=== PATIENT | male | born 1975 | race Two or more races ===

== ENCOUNTER 2021-04-06 17:31 | Inpatient (IN) | payer MEDICAID ==
[~2021-04-06] VITALS: Ht 157.5 cm; Wt 94.0 kg
[2021-04-06 18:29] LABS: GLUCOSE,POINT OF CARE 116 MG/DL (70-110)
[2021-04-06 19:34] LABS: BASOPHILS % (AUTO) 1.8 % (0.0-2.0); EOSINOPHILS % (AUTO) 4.3 % (1.0-6.0); HEMATOCRIT 43.1 % (41-53); HEMOGLOBIN 14.5 g/dL (13.5-17.5); LYMPHOCYTES # (AUTO) 2.1 K/uL (1.0-4.8); LYMPHOCYTES % (AUTO) 31.8 % (22.0-44.0); MEAN CORPUSCULAR HEMOGLOBIN 33.6 pg (26.0-34.0); MEAN CORPUSCULAR HGB CONC 33.6 G/dL (31.0-37.0); MEAN CORPUSCULAR VOLUME 100 fL (80-100); MONOCYTES # (AUTO) 0.7 K/uL (0.1-1.0); MONOCYTES % (AUTO) 10.8 % (2.0-9.0); NEUTROPHILS # (AUTO) 3.4 K/uL (1.8-7.7); NEUTROPHILS % (AUTO) 51.3 % (40.0-70.0); RED BLOOD CELL COUNT(AUTO) 4.31 MIL/uL (4.50-5.90)
[2021-04-06 19:51] LABS: ANION GAP 10 mmol/L (8-16); CALCIUM, TOTAL 7.3 mg/dL (8.8-10.5); CARBON DIOXIDE 25 mmol/L (22-29); CHLORIDE 103 mmol/L (98-107); CREATININE 0.66 mg/dL (0.60-1.30); GLOMERULAR FILTR. RATE CALC > 60 mL/min (>60); GLUCOSE,RANDOM 132 mg/dL (70-110); POTASSIUM 3.4 mmol/L (3.5-5.1); SODIUM SERUM 138 mmol/L (136-145); UREA NITROGEN, BLOOD 6 mg/dL (7-18)
[2021-04-06 19:58] LABS: ALANINE AMINOTRANSFERASE 71 U/L (12-78); ALBUMIN 2.4 g/dL (3.4-5.0); ALKALINE PHOSPHATASE 215 U/L (46-116); ASPARTATE AMINOTRANSFERASE 160 U/L (15-37); BILIRUBIN,TOTAL 3.4 mg/dL (0.1-1.0); LIPASE 226 U/L (73-393); TOTAL PROTEIN, SERUM 7.6 g/dL (6.4-8.2)
[2021-04-06 19:59] LABS: COVID AG,FIA SOURCE NASOPHARYNGEAL
[2021-04-06 20:11] LABS: APPEARANCE,URINE CLEAR (CLEAR); GLUCOSE, URINE (UA) NEGATIVE (NEGATIVE); KETONES,URINE TRACE mg/dL (NEGATIVE); LEUKOCYTE ESTERASE ,URINE TRACE (NEGATIVE); NITRATE,URINE NEGATIVE (NEGATIVE); OCCULT BLOOD,URINE MODERATE (NEGATIVE); PROTEIN,URINE POS 1+ (NEGATIVE)
[2021-04-06 20:12] LABS: BILIRUBIN,URINE PRELIM. POSITIVE (NEGATIVE)
[2021-04-06 20:19] LABS: AMPHET/METH SCREEN,URINE NEGATIVE (NEGATIVE); BARBITURATE SCREEN, URINE NEGATIVE (NEGATIVE); BENZODIAZEPINES SCREEN,URINE POSITIVE (NEGATIVE); CANNABINOID SCREEN,URINE NEGATIVE (NEGATIVE); COCAINE SCREEN,URINE NEGATIVE (NEGATIVE); METHADONE SCREEN, URINE NEGATIVE (NEGATIVE); OPIATE SCREEN,URINE NEGATIVE (NEGATIVE); PHENCYCLIDINE SCREEN,URINE NEGATIVE (NEGATIVE)
[2021-04-06 20:20] LABS: B-TYPE NATRIURETIC PEPTIDE 21 pg/mL (0-100)
[2021-04-06 20:23] LABS: RBC,URINE 0-2 /HPF (0-2); WBC,URINE 0-2 /HPF (0-5)
[2021-04-06 20:24] LABS: BACTERIA,URINE None Seen /HPF (None Seen)
[2021-04-06 20:25] LABS: SQUAMOUS EPITHELIAL CELL,UR Rare /LPF (None Seen)
[2021-04-06 20:29] LABS: PLATELET COUNT (AUTO) 76 K/uL (150-450); PLATELET MORPHOLOGY COMMENT LARGE PLTS PRESENT
[2021-04-06] MEDS ORDERED: POTASSIUM CHL 10 MEQ/WATER 50 ML IV PRN (22:30)
[2021-04-06] MEDS ORDERED: MAGNESIUM SULFATE 4 GM/WATER 100 ML IV PRN (22:30)
[2021-04-06] MEDS ORDERED: POTASSIUM CHLORIDE 20 MEQ ER TABLET PO PRN (22:30)
[2021-04-06] MEDS ORDERED: MAGNESIUM SULFATE 2 GM/WATER 50 ML IV PRN (22:30)
[2021-04-06] MEDS ORDERED: ONDANSETRON HCL 4 MG/2 ML VIAL IVP PRN (22:30)
[2021-04-06] MEDS ORDERED: MAGNESIUM OXIDE 400 MG TABLET PO PRN (22:30)
[2021-04-06] MEDS ORDERED: LORazepam 2 MG TABLET PO PRN (22:30)
[2021-04-06 22:39] LABS: INR 1.3 (0.9-1.1); PROTHROMBIN TIME 13.1 SEC (9.4-11.6)
[2021-04-06] MEDS: CefTRIAXone 1 GM/DEXTROSE 50 ML IV SCH (23:41)
[2021-04-07] VITALS (8 sets, daily range): BP systolic 130–162; BP diastolic 73–97
[2021-04-07] MEDS: MAGNESIUM SULFATE 2 GM, MVI, ADULT NO.1 WITH VIT K 10 ML, THIAMINE 100 MG, FOLIC ACID 1... IV SCH ×10 (01:33→20:42)
[2021-04-07] MEDS: HEPARIN SODIUM,PORCINE 5,000 UNITS/ML VIAL SQ SCH ×4 (01:34→23:17)
[2021-04-07] MEDS: AZITHROMYCIN 500 MG/NS 250 ML IV SCH (02:53)
[2021-04-07] MEDS ORDERED: LORazepam 2 MG TABLET PO PRN (07:00)
[2021-04-07 08:25] LABS: BASOPHILS % (AUTO) 1.3 % (0.0-2.0); EOSINOPHILS % (AUTO) 6.7 % (1.0-6.0); HEMATOCRIT 41.5 % (41-53); LYMPHOCYTES # (AUTO) 1.4 K/uL (1.0-4.8); LYMPHOCYTES % (AUTO) 30.2 % (22.0-44.0); MEAN CORPUSCULAR HEMOGLOBIN 33.5 pg (26.0-34.0); MEAN CORPUSCULAR HGB CONC 33.8 G/dL (31.0-37.0); MEAN CORPUSCULAR VOLUME 99 fL (80-100); MONOCYTES # (AUTO) 0.6 K/uL (0.1-1.0); MONOCYTES % (AUTO) 12.9 % (2.0-9.0); NEUTROPHILS # (AUTO) 2.2 K/uL (1.8-7.7); NEUTROPHILS % (AUTO) 48.9 % (40.0-70.0); PLATELET COUNT (AUTO) 60 K/uL (150-450); RED BLOOD CELL COUNT(AUTO) 4.17 MIL/uL (4.50-5.90); RED CELL DISTRIBUTION WIDTH 15.7 % (11.5-14.5)
[2021-04-07 08:44] LABS: ANION GAP 7 mmol/L (8-16); CALCIUM, TOTAL 7.4 mg/dL (8.8-10.5); CARBON DIOXIDE 28 mmol/L (22-29); CHLORIDE 107 mmol/L (98-107); CREATININE 0.55 mg/dL (0.60-1.30); GLOMERULAR FILTR. RATE CALC > 60 mL/min (>60); GLUCOSE,RANDOM 75 mg/dL (70-110); POTASSIUM 3.6 mmol/L (3.5-5.1); SODIUM SERUM 142 mmol/L (136-145); UREA NITROGEN, BLOOD 6 mg/dL (7-18)
[2021-04-07] MEDS ORDERED: LORazepam 2 MG TABLET PO SCH (09:00)
[2021-04-07] MEDS ORDERED: ASPI-1444 PO (20:36)
[2021-04-07] MEDS: LORazepam 2 MG/ML VIAL IVP PRN (20:42)
[2021-04-07] MEDS: CefTRIAXone 1 GM/DEXTROSE 50 ML IV SCH (23:17)
[2021-04-08] VITALS (7 sets, daily range): BP systolic 139–159; BP diastolic 88–101
[2021-04-08] MEDS: AmLODIPine BESYLATE 10 MG TABLET PO SCH ×2 (00:22→08:46)
[2021-04-08] MEDS: AZITHROMYCIN 500 MG/NS 250 ML IV SCH (00:22)
[2021-04-08] MEDS: LORazepam 2 MG/ML VIAL IVP PRN ×3 (03:05→20:19)
[2021-04-08] MEDS: HEPARIN SODIUM,PORCINE 5,000 UNITS/ML VIAL SQ SCH ×3 (08:46→23:16)
[2021-04-08] MEDS: SPIRONOLACTONE 25 MG TABLET PO SCH (12:15)
[2021-04-08] MEDS: FUROSEMIDE 20 MG TABLET PO SCH (12:15)
[2021-04-08] MEDS: MAGNESIUM SULFATE 2 GM, MVI, ADULT NO.1 WITH VIT K 10 ML, THIAMINE 100 MG, FOLIC ACID 1... IV SCH ×5 (20:19)
[2021-04-08] MEDS: CefTRIAXone 1 GM/DEXTROSE 50 ML IV SCH (23:16)
[2021-04-09] MEDS: METOPROLOL TARTRATE 25 MG TABLET PO SCH ×2 (01:07→08:10)
[2021-04-09] MEDS: AZITHROMYCIN 500 MG/NS 250 ML IV SCH (01:07)
[2021-04-09 05:25] VITALS: BP 144/91
[2021-04-09] MEDS ORDERED: LORazepam 1 MG TABLET PO PRN (07:00)
[2021-04-09 07:48] VITALS: BP 144/80
[2021-04-09] MEDS: HEPARIN SODIUM,PORCINE 5,000 UNITS/ML VIAL SQ SCH (08:09)
[2021-04-09] MEDS: FUROSEMIDE 20 MG TABLET PO SCH (08:10)
[2021-04-09] MEDS: AmLODIPine BESYLATE 10 MG TABLET PO SCH (08:10)
[2021-04-09] MEDS: SPIRONOLACTONE 25 MG TABLET PO SCH (08:10)
[2021-04-09] MEDS ORDERED: LORazepam 1 MG TABLET PO SCH (09:00)
[2021-04-09] MEDS ORDERED: AMLO-258 PO (10:40)
[2021-04-09] MEDS ORDERED: FURO20 PO (10:40)
[2021-04-09] MEDS ORDERED: SPIR-37 PO (10:41)
[2021-04-09] MEDS ORDERED: METO25 PO (10:42)
[2021-04-09] MEDS ORDERED: LEVO750T68 PO (10:43)
[2021-04-10] MEDS ORDERED: LORazepam 1 MG TABLET PO PRN (07:00)
== END 2021-04-09 11:30 | disposition home or self-care (01) | DRG 139 ==
LOC: EMS 17:31 → EDBD 17:31 → 6N 23:30
PROVIDERS: ADMIT Internal Medicine; ATTEND Internal Medicine
DX: J18.9 Pneumonia, unspecified organism (principal); G92 Toxic encephalopathy; J91.8 Pleural effusion in other conditions classified elsewhere; K70.31 Alcoholic cirrhosis of liver with ascites; K70.10 Alcoholic hepatitis without ascites; F10.129 Alcohol abuse with intoxication, unspecified; F10.139 Alcohol abuse with withdrawal, unspecified; E11.9 Type 2 diabetes mellitus without complications; J45.909 Unspecified asthma, uncomplicated; Y90.8 Blood alcohol level of 240 mg/100 ml or more; E66.9 Obesity, unspecified; I10 Essential (primary) hypertension; Z68.37 Body mass index [BMI] 37.0-37.9, adult; Z79.899 Other long term (current) drug therapy; Z20.822 Contact with and (suspected) exposure to COVID-19
CPT/HCPCS: 70450; 71045; 76604; 80048; 80053; 81001; 82040; 82962; 83690; 83735; 83880; 84484; 85025; 85610; 87040; 93005; 99285; G0480; J0456; J0696; J1644; J2060; J3411; J3475; J3490; J7030; 36415-L1; 36415-TC; U0003

== ENCOUNTER 2021-08-02 17:16 | Emergency (ER) | payer MEDICAID ==
[~2021-08-02] VITALS: Ht 157.5 cm; Wt 90.9 kg
[~2021-08-02 17:16] MED LIST: AMLO-258 PO; ASPI-1444 PO; FURO20 PO; LEVO750T68 PO; METO25 PO; SPIR-37 PO
[2021-08-02 17:22] VITALS: BP 153/90
== END 2021-08-02 19:45 | disposition home or self-care (01) ==
LOC: EMS 17:17
DX: Z48.00 Encounter for change or removal of nonsurgical wound dressing (principal); I10 Essential (primary) hypertension
CPT/HCPCS: 99281; Z7502